=== PATIENT | female | born 1940 | race African-American/Black ===

== ENCOUNTER 2022-03-03 14:55 | Emergency (ER) | payer MEDICARE, MEDICAID ==
[~2022-03-03] VITALS: Ht 170.2 cm; Wt 97.0 kg
[2022-03-03 18:19] VITALS: BP 160/60
== END 2022-03-03 18:49 | disposition home or self-care (01) ==
LOC: ED 14:55
DX: S00.33XA Contusion of nose, initial encounter (principal); M79.641 Pain in right hand; I10 Essential (primary) hypertension; I12.0 Hypertensive chronic kidney disease with stage 5 chronic kidney disease or end stage renal disease; N18.6 End stage renal disease; W01.0XXA Fall on same level from slipping, tripping and stumbling without subsequent striking against object, initial encounter; Y92.512 Supermarket, store or market as the place of occurrence of the external cause; Z99.2 Dependence on renal dialysis

== ENCOUNTER 2022-11-01 16:55 | Emergency (ER) | payer MEDICARE, MEDICAID ==
[2022-11-01] VITALS (44 sets, daily range): BP systolic 63–151; BP diastolic 32–71
[~2022-11-01] VITALS: Ht 154.9 cm; Wt 94.0 kg
[2022-11-01 17:22] LABS: BASO% 0.3 % (0-3); EOS% 4.1 % (0-8); HEMATOCRIT 35.5 % (37.0-47.0); HEMOGLOBIN 10.9 g/dl (12.0-16.0); IMMATURE GRANULOCYTES 0.3 % (0.0-5.0); LYMPH% 38.5 % (15-41); MEAN CELL VOLUME 108.6 fL CALC (80.0-100.0); MEAN CORPUSCULAR HGB 33.3 pG CALC (26.0-32.0); MEAN CORPUSCULAR HGB CONC 30.7 g/dL CAL (32.0-36.0); MONO% 9.6 % (2-13); NEUT# 2.74 thou/uL (2.00-7.15); NEUT% 47.2 % (42-76); RED BLOOD COUNT 3.27 mill/uL (4.20-5.60); RED CELL DISTRI WIDTH 13.6 % (11.5-15.5)
[2022-11-01 18:15] LABS: BILIRUBIN, TOTAL 0.5 mg/dL (0.02-1.3); MAGNESIUM 2.6 mg/dL (1.6-2.3); TOTAL PROTEIN 6.8 g/dL (6.3-8.2)
[2022-11-01 18:25] LABS: CREATININE 9.1 mg/dL (0.5-1.0); POTASSIUM 5.4 mmol/l (3.5-5.1)
== END 2022-11-01 21:46 ==
LOC: ED 16:55
PROVIDERS: Nurse Practitioner
PROC: 02HV33Z Insertion of Infusion Device into Superior Vena Cava, Percutaneous Approach (ICD-10-PCS; principal; 2022-11-01)
PROC: 5A12012 Performance of Cardiac Output, Single, Manual (ICD-10-PCS; 2022-11-01)
DX: R00.1 Bradycardia, unspecified (principal); E87.5 Hyperkalemia; I97.711 Intraoperative cardiac arrest during other surgery; I12.0 Hypertensive chronic kidney disease with stage 5 chronic kidney disease or end stage renal disease; N18.6 End stage renal disease; Y84.8 Other medical procedures as the cause of abnormal reaction of the patient, or of later complication, without mention of misadventure at the time of the procedure; Y92.230 Patient room in hospital as the place of occurrence of the external cause; Z91.15 Patient's noncompliance with renal dialysis; Z99.2 Dependence on renal dialysis
CPT/HCPCS: J1610

== ENCOUNTER 2022-12-31 22:05 | Inpatient (IN) | payer MEDICARE, MEDICAID ==
[2022-12-31] VITALS (7 sets, daily range): BP systolic 215–227; BP diastolic 92–105
[~2022-12-31] VITALS: Ht 154.9 cm; Wt 89.0 kg
--- NOTE | 2022-12-31 22:05 | NUR ---
PATIENT TO ROOM 10 VIA EMS STRETCHER. TRIAGE COMPLETED AT BEDSIDE. PATIENT DOES NOT APPEAR TACHYPNEIC. STATES SHE ONLY GETS SOB WHEN SHE IS WALKING. STATES IF SHE HAD O2 AT HOME SHE WOULD NEVER HAVE CALLED EMS
--- NOTE | 2022-12-31 22:30 | NUR ---
LABS DRAWN AND SENT. ABG COMPLETED AND RESPIRATORY AT BEDSIDE TO PLACE PATIENT ON NC. AWAITING XRAY AND ALL RESULTS.
[2022-12-31 22:49] LABS: BASO% 0.3 % (0-3); EOS% 2.5 % (0-8); HEMOGLOBIN 9.4 g/dl (12.0-16.0); IMMATURE GRANULOCYTES 0.1 % (0.0-5.0); LYMPH% 17.1 % (15-41); MEAN CELL VOLUME 104.9 fL CALC (80.0-100.0); MEAN CORPUSCULAR HGB 32.9 pG CALC (26.0-32.0); MEAN CORPUSCULAR HGB CONC 31.3 g/dL CAL (32.0-36.0); MONO% 8.2 % (2-13); NEUT# 4.87 thou/uL (2.00-7.15); NEUT% 71.8 % (42-76); RED BLOOD COUNT 2.86 mill/uL (4.20-5.60); RED CELL DISTRI WIDTH 15.3 % (11.5-15.5)
[2022-12-31 23:05] LABS: ALBUMIN 4.2 g/dL (3.2-5.0); BILIRUBIN, TOTAL 0.7 mg/dL (0.02-1.3); POTASSIUM 4.5 mmol/l (3.5-5.1); TOTAL PROTEIN 7.3 g/dL (6.3-8.2)
[2022-12-31 23:14] LABS: CREATININE 11.6 mg/dL (0.5-1.0)
--- NOTE | 2022-12-31 23:15 | NUR ---
PATIENTRESTING ON STRETCHER. GIVEN WARM BLANKET. CONTINUE AWAITING ALL RESULTS AND PLAN OF CARE.
[2023-01-01] VITALS (74 sets, daily range): BP systolic 108–232; BP diastolic 46–107
--- NOTE | 2023-01-01 00:07 | NUR ---
PATIENT MEDICATED FOR ELEVATED BLOOD PRESSURE AND LASIX GIVEN. PATIENT FEELS THAT SOB IS WORSE. O2 SAT 91% ON 2L VIA NC
--- NOTE | 2023-01-01 00:18 | NUR ---
AT BEDSIDE FOR RE EVAL.
--- NOTE | 2023-01-01 00:40 | NUR ---
PATIENT ASSSISTED OUT OF BED AND ONTO BEDSIDE COMMODE FOR POSSIBLE BM.
--- NOTE | 2023-01-01 00:50 | NUR ---
PATIENT GOT HERSELF TO SIDE OF STRETCHER UNASSISTED. ASSISTED WITH HER LEGS ONTO STRETCHER. PATIENT SITTING IN HIGH FOWLERS. STILL WITH C/O SOB. O2 SAT 96 ON NC.
--- NOTE | 2023-01-01 01:10 | NUR ---
PATIENT AWARE OF PLANS TO ADMIT. PATIENT APPEARS ANXIOUS, STATES SHE STILL FEELS SOB AND NAUSEA.
--- NOTE | 2023-01-01 01:35 | NUR ---
PATIENT MEDICATED FOR NAUSEA.WILL HOLD CLONIDINE UNTIL NAUSEA SUBSIDES.
--- NOTE | 2023-01-01 01:50 | NUR ---
PATIENT WOKEN UP FOR BLOOD DRAW. PATIENT APPEARS CALMER. AWARE OF PLANS TO ADMIT.
[2023-01-01 02:12] LABS: AMYLASE 113 u/l (30-110); LIPASE 361 u/l (23-300)
--- NOTE | 2023-01-01 02:13 | NUR ---
REPORT CALLED TO [facility]. PATIENT READIED FOR TRANSPORT TO FLOOR.
--- NOTE | 2023-01-01 03:00 | NUR ---
PATIENT ARRIVED TO UNIT VIA STRETCHER; ACCOMPANIED BY ER NURSE. SHE IS ALERT AND ORIENTED X3. LUNGS CTA. BOWEL SOUNDS ACTIVE. SKIN INTACT. FISTULA NOTED TO THE LEFT ARM. SHE IS NOTED ON CARDENE DRIP RUNNING AT 2.5 MG. +3 PITTING EDEMA NOTED TO BLE. BED LOCKED, IN LOW POSITION. CALL LIGHT WITHIN REACH.
--- NOTE | 2023-01-01 07:30 | NUR ---
PERFROMED BEDSIDE REPORT WITH NIGHTSHIFT NURSE. PT NOTED SITTING UP ON SIDE OF BED, ADMINISTERED BREAKFAST TRAY. PT IS A/OX3, ON 2L O2 NC. MONITOR IN PLACE. CARDIPINE DRIP RUNNING @5ML/HR IN IV SITE ON RFA. EMS SITE. PT HAS +3 PITTING EDEMA NOTED IN BLE. SKIN INTACT, H/D GRAPH NOTED IN LEFT ARM. SKIN INTACT. LUNG SOUNDS PRESENT CRACKLES THROUGHOUT. BP ELEVATED, OTHER VITALS WNL. EDUCATED PT ON PLAN OF CARE TODAY. CALL LIGHT WITHIN REACH AND SAFETY PRECAUTIONS IN PLACE.
--- NOTE | 2023-01-01 07:36 | NUR ---
REPORT GIVEN TO ONCOMING NURSE.
--- NOTE | 2023-01-01 08:10 | NUR ---
HALEIGH SERRANO ON FLOOR, TITRATED NICARDIPINE TO 7.5ML/HR. PT BP STILL ELEVATED AT THIS TIME. PT SHOWS NO S/S OF DISTRESS. CALL LIGHT WITHIN REACH AND SAFETY PRECAUTIONS IN PLACE.
--- NOTE | 2023-01-01 08:50 | NUR ---
PT IV SITE INFILTRATED. ATTEMPTED NEW IV START, UNSUCCESSFUL. HALEIGH SERRANO ATTEMPTING NEW IV START. H/D NURSE KATHI PRESENT AND PREPPING PT FOR H/D.
--- NOTE | 2023-01-01 09:31 | NUR ---
UNSUCCESSFUL ATTEMPTS TO START NEW IV. PHYSICIAN IS AWARE AT THIS TIME AND ORDERS TO HOLD THE NICARDIPINE DRIP AT THIS TIME DUE TO PT STARTING H/D. PT IS SITTING UP HIGH FOWELRS IN BED, VSS, CALL LIGHT WITHIN REACH AND SAFETY PRECAUTIONS IN PLACE. H/D NURSE IN RM WITH PT.
--- NOTE | 2023-01-01 10:38 | NUR ---
HEMODIALYSIS TREATMENT INITIATED AT . 10:38 SEE HEMODIALYSIS TREATMENT PROCESS INTERVENTION AND TABLO TREATMENT FLOWSHEET FOR TREATMENT SPECIFIC DETAILS.
--- NOTE | 2023-01-01 11:15 | NUR ---
PT IS CURRENTLY GOING THROUGH H/D ADMINISTERED BY DIALYSIS NURSE. PT BP IS EXTREMELY ELEVATED AT THIS TIME. INFORMED PHYSICAIN. TORB AND ORDER FAXED TO PHARMACY AWAITING VERIFICATION. DID INFORM DIALYSIS NURSE WELL.
--- NOTE | 2023-01-01 11:56 | NUR ---
RETACRIT ORDERED PHARMACY TO DOSE. PATIENT DUE FOR RETACRIT WITH DIALYSIS. RETACRIT HELD TODAY DUE TO UNCONTROLLED HYPERTENSION. WILL RE-EVALUATE PRIOR TO NEXT DIALYIS.
[2023-01-01] MEDS ORDERED: MELOXICAM7.5 MG PO (12:22)
[2023-01-01] MEDS ORDERED: PRAVASTATIN SOD10 MG PO (12:25)
[2023-01-01] MEDS ORDERED: NIFEDIPINE PO (12:28)
[2023-01-01] MEDS ORDERED: TYLENOL500 MG PO (12:35)
--- NOTE | 2023-01-01 13:52 | NUR ---
HEMODIALYSIS TREATMENT COMPLETED AT . 1352 SEE HEMODIALYSIS TREATMENT PROCESS INTERVENTION AND TABLO TREATMENT FLOWSHEET FOR TREATMENT SPECIFIC DETAILS.
--- NOTE | 2023-01-01 14:01 | NUR ---
PT COMPLETED H/D. HALEIGH ARMENTA IS ADMINSTERING PT MORNING PO MED PER PHYSICIANS ORDER. RECEIVED REPORT FROM RN. PT IS LAYING IN BED SEMI FOWLERS, DENIES ANY PAIN. BP IS ELEVATED AT THIS TIME. CALL LIGHT WITHIN REACH AND SAFETY PRECAUTIONS IN PLACE.
[2023-01-01] MEDS ORDERED: ALLEGRA ALLERGY60 MG PO (15:06)
--- NOTE | 2023-01-01 17:23 | NUR ---
PT IS SITTING UP IN BED HIGH FOWELRS. DENIES ANY PAIN JUST STATES FEELING TIRED. ENCOURAGED PT TO EAT WHAT SHE CAN. VSS. CALL LIGHT WITHIN REACH AND SAFETY PRECAUTIONS IN PLACE.
--- NOTE | 2023-01-01 19:00 | NUR ---
REPORT RECEIVED AT BEDSIDE FROM Ash BAUTISTA RN, CARE OF PT ASSUMED AT THIS TIME.
--- NOTE | 2023-01-01 19:49 | NUR ---
APPLE JUICE, WARM BLANKET PROVIDED PER PT'S REQUEST. PT ON THE PHONE. DENIES NEEDS AT THIS TIME.
--- NOTE | 2023-01-01 21:00 | NUR ---
PT ASSITED TO RECLINER BY Kurt PORTILLO RN.
--- NOTE | 2023-01-01 22:18 | NUR ---
PT ASSISTED BACK TO BED BY Ash BAUTISTA LPN.
[2023-01-02] VITALS (15 sets, daily range): BP systolic 107–169; BP diastolic 36–111
--- NOTE | 2023-01-02 00:12 | NUR ---
REPORT LEFT LOWER BACK PAIN, ASSISTED TO REPOSITION FOR COMFORT AND WARM PACK APPLIED.
--- NOTE | 2023-01-02 00:22 | NUR ---
MEASUREMENT TECHNICIAN UP TO DRAW TROPONIN LEVEL.
--- NOTE | 2023-01-02 02:00 | NUR ---
PT APPEARS TO BE SLEEPING COMFORTABLY, RESPIRATIONS REGULAR AND UNLABORED, NO APPARENT DISTRESS. CALL WIGGINS REMAINS WITHIN REACH.
--- NOTE | 2023-01-02 02:15 | NUR ---
PT SITTING UP IN BED WATCHING TV.
--- NOTE | 2023-01-02 03:31 | NUR ---
STAFFING ADMINISTRATOR IN ROOM TO DRAW AM LABS.
--- NOTE | 2023-01-02 04:39 | NUR ---
PT SITTING UP IN RECLINER, STATES BACK PAIN RESOLVED WHEN SITTING UP AND OUT OF BED.
[2023-01-02 04:54] LABS: ALBUMIN 3.8 g/dL (3.2-5.0); POTASSIUM 4.9 mmol/l (3.5-5.1)
[2023-01-02 04:57] LABS: CREATININE 8.1 mg/dL (0.5-1.0)
--- NOTE | 2023-01-02 06:04 | NUR ---
PT APPEARS TO BE SLEEPING COMFORTABLY, RESPIRATIONS REGULAR AND UNLABORED, NO APPARENT DISTRESS. CALL WIGGINS REMAINS WITHIN REACH.
--- NOTE | 2023-01-02 07:42 | NUR ---
RECEIVED BEDSIDE REPORT FROM HALEIGH NAVAS. PT LYING IN BED WITH EYES CLOSED. ALL SAFETY MEASURES IN PLACE. VSS. NO NEEDS AT THIS TIME.
--- NOTE | 2023-01-02 09:59 | NUR ---
CONTACTED DR MABRY'S OFFICE IN REFERENCE TO A PHYSICIAN CONSULT. I SPOKE WITH DANNY AT 0959 HRS.
[2023-01-02] MEDS ORDERED: LOSARTAN POTAS100 MG PO (11:04)
[2023-01-02] MEDS ORDERED: CLONIDINE0.1 MG PO (11:04)
[2023-01-02] MEDS ORDERED: COREG12.5 MG PO (11:05)
--- NOTE | 2023-01-02 12:00 | NUR ---
PT RESTING IN BED WITH EYES CLOSED. PT HAD ECHOCARDIOGRAM. MD INDICATES PT WILL BE DISCHARGED HOME TODAY.
--- NOTE | 2023-01-02 14:30 | NUR ---
Discharge instructions given. Patient verbalizes understanding of same. Discharged in stable condition via Wheelchair to Home with volunteer. All belongings sent with pt.
== END 2023-01-02 14:25 | disposition home or self-care (01) | DRG 304 ==
LOC: ED 22:05 → ED-I 01-01 01:00 → ED 01-01 01:15 → MS2 01-01 01:16 → ICU 01-01 01:40
PROVIDERS: Emergency Medicine; Internal Medicine Nephrology; ADMIT Student in an Organized Health Care Education/Training Program; ATTEND Student in an Organized Health Care Education/Training Program
PROC: 5A1D70Z Performance of Urinary Filtration, Intermittent, Less than 6 Hours Per Day (ICD-10-PCS; principal; 2023-01-01)
DX: I16.1 Hypertensive emergency (principal); N18.6 End stage renal disease; N25.81 Secondary hyperparathyroidism of renal origin; I12.0 Hypertensive chronic kidney disease with stage 5 chronic kidney disease or end stage renal disease; Z99.2 Dependence on renal dialysis; R09.02 Hypoxemia; D63.1 Anemia in chronic kidney disease; D53.9 Nutritional anemia, unspecified; T46.5X6A Underdosing of other antihypertensive drugs, initial encounter; Z91.128 Patient's intentional underdosing of medication regimen for other reason; Z91.15 Patient's noncompliance with renal dialysis; Z20.822 Contact with and (suspected) exposure to COVID-19
CPT/HCPCS: J1644

== ENCOUNTER 2024-01-01 16:36 | Emergency (ER) | payer MEDICARE ==
[~2024-01-01] VITALS: Ht 154.9 cm; Wt 72.7 kg
[~2024-01-01 16:36] MED LIST: ALLEGRA ALLERGY60 MG PO; CLONIDINE0.1 MG PO; COREG12.5 MG PO; LOSARTAN POTAS100 MG PO; MELOXICAM7.5 MG PO; NIFEDIPINE PO; PRAVASTATIN SOD10 MG PO; TYLENOL500 MG PO
[2024-01-01 17:22] LABS: BASO% 0.4 % (0-3); EOS% 2.3 % (0-8); HEMATOCRIT 32.1 % (37.0-47.0); HEMOGLOBIN 10.3 g/dl (12.0-16.0); IMMATURE GRANULOCYTES 0.4 % (0.0-5.0); MEAN CELL VOLUME 108.1 fL CALC (80.0-100.0); MEAN CORPUSCULAR HGB 34.7 pG CALC (26.0-32.0); MEAN CORPUSCULAR HGB CONC 32.1 g/dL CAL (32.0-36.0); MONO% 11.3 % (2-13); NEUT# 3.17 thou/uL (2.00-7.15); NEUT% 60.6 % (42-76); RED BLOOD COUNT 2.97 mill/uL (4.20-5.60); RED CELL DISTRI WIDTH 14.8 % (11.5-15.5)
[2024-01-01 17:35] LABS: MAGNESIUM 2.4 mg/dL (1.6-2.3)
[2024-01-01 17:50] LABS: BILIRUBIN, TOTAL 0.4 mg/dL (0.02-1.3)
[2024-01-01 17:51] LABS: CREATININE 7.5 mg/dL (0.5-1.0); POTASSIUM 7.1 mmol/l (3.5-5.1)
[2024-01-01] MEDS ORDERED: CALCIUM GLUCONATE 1 GM in SODIUM CHLORIDE 0.9% 50 ML IV ONE (18:00)
[2024-01-01] MEDS ORDERED: DEXTROSE 10% 500 ML BAG IV ONE (18:00)
[2024-01-01] MEDS ORDERED: INSULIN REGULAR (HUMAN) 100 UNIT/ML INJ IV ONE (18:00)
[2024-01-01] MEDS ORDERED: CALCIUM GLUCONATE 2 GM in SODIUM CHLORIDE 0.9% 100 ML IV ONE (18:00)
[2024-01-01] MEDS ORDERED: ALBUTEROL SULFATE 2.5 MG VIAL NEB ONE (18:15)
[2024-01-01] MEDS ORDERED: SODIUM ZIRCONIUM CYCLOSILICATE 10 GM PAK PO ONE (18:15)
[2024-01-01 22:10] VITALS: BP 162/63
[2024-01-01 22:12] LABS: CREATININE 7.6 mg/dL (0.5-1.0); POTASSIUM 4.5 mmol/l (3.5-5.1)
[2024-01-01 22:16] VITALS: BP 157/77
[2024-01-01 22:31] VITALS: BP 163/62
[2024-01-01 22:46] VITALS: BP 186/64
[2024-01-01 22:57] VITALS: BP 186/64
== END 2024-01-01 22:57 | disposition home or self-care (01) ==
LOC: ED 16:36
PROVIDERS: Family Medicine
DX: E87.5 Hyperkalemia (principal); I12.0 Hypertensive chronic kidney disease with stage 5 chronic kidney disease or end stage renal disease; N18.6 End stage renal disease; Z99.2 Dependence on renal dialysis

== ENCOUNTER 2024-04-25 14:19 | Emergency (ER) | payer MEDICARE ==
[~2024-04-25] VITALS: Ht 154.9 cm; Wt 72.0 kg
[2024-04-25] MEDS ORDERED: LIDOcaine HCl 1% (Local Anesth.) 20 ML VIAL STI STA (14:22)
[2024-04-25] MEDS ORDERED: Diph, Acellular Pertussis, Tet 0.5 ML/VIAL (Tdap) SDV IM ONE (14:25)
[2024-04-25] MEDS ORDERED: POVIDONE IODINE 0.5 OZ/BTL TOP ONE (14:25)
[2024-04-25 15:19] LABS: BASO% 0.7 % (0-3); EOS% 3.4 % (0-8); HEMATOCRIT 30.3 % (37.0-47.0); HEMOGLOBIN 9.6 g/dl (12.0-16.0); IMMATURE GRANULOCYTES 0.7 % (0.0-5.0); LYMPH% 22.6 % (15-41); MEAN CELL VOLUME 106.3 fL CALC (80.0-100.0); MEAN CORPUSCULAR HGB 33.7 pG CALC (26.0-32.0); MEAN CORPUSCULAR HGB CONC 31.7 g/dL CAL (32.0-36.0); MONO% 9.1 % (2-13); NEUT# 2.64 thou/uL (2.00-7.15); NEUT% 63.5 % (42-76); RED BLOOD COUNT 2.85 mill/uL (4.20-5.60)
[2024-04-25 15:32] LABS: ALBUMIN 4.4 g/dL (3.2-5.0); BILIRUBIN, TOTAL 0.4 mg/dL (0.02-1.3); POTASSIUM 4.7 mmol/l (3.5-5.1); TOTAL PROTEIN 7.7 g/dL (6.3-8.2)
[2024-04-25 15:40] LABS: CREATININE 5.1 mg/dL (0.5-1.0)
[2024-04-25 16:13] VITALS: BP 163/72
== END 2024-04-25 16:17 | disposition home or self-care (01) ==
LOC: ED 14:19
PROVIDERS: Family Medicine
PROC: 0HQ1XZZ Repair Face Skin, External Approach (ICD-10-PCS; principal; 2024-04-25)
DX: S01.81XA Laceration without foreign body of other part of head, initial encounter (principal); I10 Essential (primary) hypertension; I12.0 Hypertensive chronic kidney disease with stage 5 chronic kidney disease or end stage renal disease; N18.6 End stage renal disease; W01.0XXA Fall on same level from slipping, tripping and stumbling without subsequent striking against object, initial encounter; Y93.G3 Activity, cooking and baking; Y92.000 Kitchen of unspecified non-institutional (private) residence as the place of occurrence of the external cause; Z99.2 Dependence on renal dialysis
CPT/HCPCS: 90715

== ENCOUNTER 2024-05-02 11:48 | Emergency (ER) | payer MEDICARE ==
[~2024-05-02] VITALS: Ht 154.9 cm; Wt 77.1 kg
[2024-05-02 12:00] VITALS: BP 136/48
[2024-05-02 12:18] VITALS: BP 136/48
== END 2024-05-02 12:18 | disposition home or self-care (01) ==
LOC: ED 11:48
DX: S01.81XD Laceration without foreign body of other part of head, subsequent encounter (principal); X58.XXXD Exposure to other specified factors, subsequent encounter; I12.0 Hypertensive chronic kidney disease with stage 5 chronic kidney disease or end stage renal disease; N18.6 End stage renal disease; Z99.2 Dependence on renal dialysis

== ENCOUNTER 2024-06-01 10:07 | Emergency (ER) | payer MEDICARE ==
[2024-06-01] VITALS (12 sets, daily range): BP systolic 136–162; BP diastolic 45–83
[~2024-06-01] VITALS: Ht 154.9 cm; Wt 80.0 kg
[2024-06-01 10:32] LABS: BASO% 0.3 % (0-3); EOS% 1.2 % (0-8); HEMOGLOBIN 10.9 g/dl (12.0-16.0); IMMATURE GRANULOCYTES 0.3 % (0.0-5.0); LYMPH% 28.2 % (15-41); MEAN CELL VOLUME 112.2 fL CALC (80.0-100.0); MEAN CORPUSCULAR HGB 34.9 pG CALC (26.0-32.0); MEAN CORPUSCULAR HGB CONC 31.1 g/dL CAL (32.0-36.0); MONO% 10.5 % (2-13); NEUT# 3.53 thou/uL (2.00-7.15); NEUT% 59.5 % (42-76); RED BLOOD COUNT 3.12 mill/uL (4.20-5.60); RED CELL DISTRI WIDTH 15.7 % (11.5-15.5)
[2024-06-01 12:07] LABS: ALBUMIN 4.1 g/dL (3.2-5.0); BILIRUBIN, TOTAL 0.5 mg/dL (0.02-1.3); MAGNESIUM 2.6 mg/dL (1.6-2.3); TOTAL PROTEIN 6.9 g/dL (6.3-8.2)
[2024-06-01 12:10] LABS: CREATININE 7.9 mg/dL (0.5-1.0)
[2024-06-01] MEDS ORDERED: CALCIUM GLUCONATE 2 GM in SODIUM CHLORIDE 0.9% 100 ML IV ONE (12:10)
[2024-06-01] MEDS ORDERED: SODIUM BICARBONATE 8.4% 50 ML/SYR IV ONE ×2 (12:10→12:35)
[2024-06-01] MEDS ORDERED: CALCIUM GLUCONATE 1 GM in SODIUM CHLORIDE 0.9% 50 ML IV ONE (12:10)
[2024-06-01] MEDS ORDERED: ALBUTEROL SULFATE 2.5 MG VIAL IN ONE (12:15)
[2024-06-01] MEDS ORDERED: INSULIN REGULAR (HUMAN) 100 UNIT/ML INJ IV ONE (12:15)
[2024-06-01] MEDS ORDERED: DEXTROSE 10% 500 ML BAG IV ONE (12:15)
[2024-06-01 14:09] LABS: POTASSIUM 5.5 mmol/l (3.5-5.1)
== END 2024-06-01 13:53 | disposition short-term general hospital (02) ==
LOC: ED 10:07
PROVIDERS: Family Medicine
DX: E87.5 Hyperkalemia (principal); I12.0 Hypertensive chronic kidney disease with stage 5 chronic kidney disease or end stage renal disease; N18.6 End stage renal disease; Z99.2 Dependence on renal dialysis
CPT/HCPCS: J0612

== ENCOUNTER 2024-07-13 18:09 | Emergency (ER) | payer MEDICARE ==
[2024-07-13] VITALS (8 sets, daily range): BP systolic 123–160; BP diastolic 36–55
[~2024-07-13] VITALS: Ht 154.9 cm; Wt 77.6 kg
[~2024-07-13 18:09] MED LIST changes: +ATROPINE SULFATE 0.1 MG/ML 10 ML SYR IV ONE; +DEXTROSE 50% 50 ML/SYR IV ONE
[2024-07-13] MEDS ORDERED: PROMETHAZINE HCL 25 MG/ML AMP IV ONE (19:55)
[2024-07-13 20:09] LABS: BASO% 0.2 % (0-3); EOS% 1.8 % (0-8); HEMATOCRIT 33.7 % (37.0-47.0); HEMOGLOBIN 10.7 g/dl (12.0-16.0); LYMPH% 30.7 % (15-41); MEAN CORPUSCULAR HGB 34.3 pG CALC (26.0-32.0); MEAN CORPUSCULAR HGB CONC 31.8 g/dL CAL (32.0-36.0); MONO% 9.4 % (2-13); NEUT# 2.88 thou/uL (2.00-7.15); NEUT% 57.9 % (42-76); RED BLOOD COUNT 3.12 mill/uL (4.20-5.60); RED CELL DISTRI WIDTH 14.9 % (11.5-15.5)
[2024-07-13 20:25] LABS: ALBUMIN 4.1 g/dL (3.2-5.0); BILIRUBIN, TOTAL 0.5 mg/dL (0.02-1.3); MAGNESIUM 2.5 mg/dL (1.6-2.3)
[2024-07-13 20:26] LABS: ACT PARTIAL THROMBO TIME 28.9 SECONDS (20.0-32.5)
[2024-07-13 20:28] LABS: PROTHROMBIN TIME 10.6 SECONDS (9.0-12.5)
[2024-07-13 20:32] LABS: CREATININE 8.7 mg/dL (0.5-1.0); POTASSIUM 5.6 mmol/l (3.5-5.1)
[2024-07-13] MEDS ORDERED: INSULIN REGULAR (HUMAN) 100 UNIT/ML INJ IV ONE (20:40)
[2024-07-13] MEDS ORDERED: DEXTROSE 50% 50 ML/SYR IV ONE (20:40)
[2024-07-13] MEDS ORDERED: CALCIUM GLUCONATE 1 GM in SODIUM CHLORIDE 0.9% 50 ML IV ONE (20:40)
[2024-07-13] MEDS ORDERED: ALBUTEROL SULFATE 2.5 MG VIAL IN ONE (20:40)
[2024-07-13 20:55] LABS: TSH, 3RD GENERATION 2.27 uIU/mL (0.47 - 4.68)
[2024-07-14] VITALS (15 sets, daily range): BP systolic 107–167; BP diastolic 37–49
[2024-07-14] MEDS ORDERED: SODIUM CHLORIDE 0.9% FOR IRRIGATION 250 ML BTL IR PRN (01:25)
[2024-07-14] MEDS ORDERED: SODIUM POLYSTYRENE SULFONATE 15 G/BTL POWDER PO ONE (01:55)
== END 2024-07-14 03:06 | disposition short-term general hospital (02) ==
LOC: ED 18:09
PROVIDERS: Family Medicine
DX: K85.90 Acute pancreatitis without necrosis or infection, unspecified (principal); K80.20 Calculus of gallbladder without cholecystitis without obstruction; R00.1 Bradycardia, unspecified; E87.5 Hyperkalemia; I12.0 Hypertensive chronic kidney disease with stage 5 chronic kidney disease or end stage renal disease; N18.6 End stage renal disease; Z99.2 Dependence on renal dialysis
CPT/HCPCS: J0461; J0612; J2550